=== PATIENT | female | born 2000 | race Caucasian/White ===

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

== ENCOUNTER → 2020-04-18 | Outpatient (CLI) | payer MEDICAID ==
--- NOTE | 2020-04-18 12:27 | EEG ---
DATE OF SERVICE: 04/18/2020 ELECTROENCEPHALOGRAM REPORT ATTENDING DOCTOR: Dr. Tiffanie Olvera. This is EEG #[id number] performed on 04/18/2020. OBJECTIVE: The patient is a 19-year-old female with new onset of seizure approximately 4 months ago. DESCRIPTION: This is a digital study. Electrodes are placed according to the international 10-20 system. Bipolar and referential montages are available. Activation procedures typically include hyperventilation and intermittent photic stimulation. INTERPRETATION: The waking background consists of 9-10 Hz, 50-100 microvolt activity, symmetrically distributed over parietooccipital regions and reactive to eye opening. Hyperventilation and intermittent photic stimulation are noncontributory. Stage 1 sleep is achieved with normal electroencephalogram patterns. All computer-identified abnormalities are reviewed and none are truly abnormal. IMPRESSION: This electroencephalogram with the patient awake and asleep is within normal limits. There is no focal, paroxysmal, or epileptiform activity. Thank you for letting us help with the patient's care. TRAVIS LENNON MD DR: OSIRIS/radha JOB#: [id number] / [id number] Tiffanie James
== END | disposition home or self-care (01) ==
LOC: RT 09:16
PROVIDERS: ATTEND Psychiatry & Neurology Neurology with Special Qualifications in Child Neurology
DX: Q04.4 Septo-optic dysplasia of brain (principal); R56.9 Unspecified convulsions
CPT/HCPCS: 95816